=== PATIENT | male | born 1985 | race Caucasian/White ===

== ENCOUNTER 2017-01-19 10:09 | Inpatient (IN) | payer SELFPAY ==
[~2017-01-19] VITALS: Ht 180.3 cm; Wt 83.9 kg
[2017-01-19] MEDS ORDERED: SODIUM CHLORIDE 0.9% 1,000 ML IV ONE ×3 (14:00→15:45)
[2017-01-19] MEDS ORDERED: ONDANSETRON HCL 4MG/2ML VIAL IV ONE (14:00)
[2017-01-19] MEDS ORDERED: KETOROLAC 30MG/ML VIAL IV ONE (14:15)
[2017-01-19 15:23] LABS: HEMATOCRIT. 38.9 % (42.0-52.0); MEAN CORPUSCULAR HEMOGLOBIN 25.8 pg (28.0-32.0); MEAN CORPUSCULAR VOLUME 77.3 fL (80.0-94.0); MEAN PLATELET VOLUME 7.7 fl (7.4-10.4); PLATELET 358 x1000/uL (130-400); RED BLOOD CELL COUNT 5.04 mill/uL (4.7-6.1); RED CELL DISTRIBUTION WIDTH 13.5 % (11.6-14.6)
[2017-01-19 15:24] LABS: INR 1.1; PROTHROMBIN TIME 11.7 sec (9.4-11.6)
[2017-01-19 15:27] LABS: CARBON DIOXIDE 28 mEq/L (21-32); CHLORIDE 101 mEq/L (98-107)
[2017-01-19] MEDS ORDERED: MORPHINE SULFATE 2 MG/ML CPJ (NOT FOR IM USE) IV ONE (15:30)
[2017-01-19] MEDS ORDERED: PIPERACILLIN/TAZ 2.25G PREMIX 50 ML IV ONE (15:45)
[2017-01-19 16:16] LABS: PLATELET ESTIMATE NORMAL
[2017-01-19 16:34] LABS: CLARITY URINE CLEAR (CLEAR); COLOR URINE DARK YELLOW (YELLOW); GLUCOSE URINE NEGATIVE (NEGATIVE); KETONES URINE 1+ (NEGATIVE); LEUKOCYTE ESTERASE URINE TRACE (NEGATIVE); NITRITE URINE NEGATIVE (NEGATIVE); OCCULT BLOOD URINE NEGATIVE (NEGATIVE); PH URINE >=9.0 (4.5-8.0); PROTEIN URINE 2+ (NEGATIVE); SPECIFIC GRAVITY URINE 1.032 (1.005-1.030)
[2017-01-19] MEDS ORDERED: ONDANSETRON HCL 4MG/2ML VIAL IV PRN ×2 (17:00→18:15)
[2017-01-19] MEDS ORDERED: ACETAMINOPHEN 650MG SUPP PR PRN (17:00)
[2017-01-19] MEDS ORDERED: MORPHINE SULFATE 2 MG/ML CPJ (NOT FOR IM USE) IV PRN (17:00)
[2017-01-19] MEDS ORDERED: PROPOFOL 200MG/20ML VIAL IV ONE (17:03)
[2017-01-19] MEDS ORDERED: DEXAMETHASONE 4MG/ML 1ML VIAL ONE (17:03)
[2017-01-19] MEDS ORDERED: ROCURONIUM BROMIDE 10MG/ML VIAL 5ML IV ONE (17:03)
[2017-01-19] MEDS ORDERED: LABETALOL HCL 5MG/ML VIAL 20ML IV ONE (17:03)
[2017-01-19] MEDS ORDERED: BUPIVACAINE HCL 0.5% (5MG/ML) 50ML ONE (17:06)
[2017-01-19] MEDS ORDERED: HYDROMORPHONE HCL/PF 2MG/ML (OR) ONE (17:23)
[2017-01-19] MEDS ORDERED: PIPERACILLIN/TAZOBACTAM 3.375GM/50ML PREMIX IV SCH (18:00)
[2017-01-19] MEDS ORDERED: MEPERIDINE HCL/PF 25MG/ML CPJ IV PRN (18:15)
[2017-01-19] MEDS ORDERED: LABETALOL HCL 20MG/4ML CARPUJECT IV PRN (18:15)
[2017-01-19] MEDS: HYDROMORPHONE HCL/PF 2MG/ML CPJ IV PRN ×2 (18:21→18:24)
[2017-01-19 19:58] VITALS: BP 108/50
[2017-01-19 20:00] VITALS: BP 119/56
[2017-01-19] MEDS ORDERED: DEXT 5%/0.45% NACL KCL 20MEQ/L 1,000 ML IV SCH (20:00)
[2017-01-19] MEDS: FAMOTIDINE 20MG/2ML VIAL IV SCH (22:25)
[2017-01-19] MEDS: PIPERACILLIN/TAZ 3.375G PREMIX 50 ML IV SCH (22:52)
[2017-01-20 00:45] VITALS: BP 113/72
[2017-01-20 06:00] VITALS: BP 113/69
[2017-01-20] MEDS: MORPHINE SULFATE 4 MG/ML CPJ (NOT FOR IM USE) IV PRN ×5 (06:32→21:36)
[2017-01-20 08:00] VITALS: BP 117/66
[2017-01-20] MEDS: PIPERACILLIN/TAZ 3.375G PREMIX 50 ML IV SCH ×3 (09:18→21:27)
[2017-01-20] MEDS: FAMOTIDINE 20MG/2ML VIAL IV SCH ×2 (09:18→21:27)
[2017-01-20 12:00] VITALS: BP 113/53
[2017-01-20 16:00] VITALS: BP 112/57
[2017-01-20] MEDS ORDERED: ACETAMINOPHEN 325MG TABLET PO PRN (18:45)
[2017-01-20] MEDS: DEXT 5%/0.45% NACL KCL 20MEQ/L 1,000 ML IV SCH (19:05)
[2017-01-20 20:00] VITALS: BP 107/61
[2017-01-21 00:03] VITALS: BP 109/57
[2017-01-21] MEDS: DEXT 5%/0.45% NACL KCL 20MEQ/L 1,000 ML IV SCH ×3 (04:34→23:42)
[2017-01-21] MEDS: PIPERACILLIN/TAZ 3.375G PREMIX 50 ML IV SCH ×4 (04:34→23:42)
[2017-01-21] MEDS: MORPHINE SULFATE 4 MG/ML CPJ (NOT FOR IM USE) IV PRN ×4 (04:40→20:40)
[2017-01-21 08:00] VITALS: BP 113/67
[2017-01-21] MEDS: FAMOTIDINE 20MG/2ML VIAL IV SCH ×2 (08:30→20:39)
[2017-01-21 11:59] LABS: BASOPHILS % 0.2 % (0.0-2.0); EOSINOPHILS % 0.5 % (0.0-5.0); HEMATOCRIT. 33.4 % (42.0-52.0); LYMPHOCYTES % 15.1 % (20.0-50.0); MEAN CORPUSCULAR HEMOGLOBIN 25.8 pg (28.0-32.0); MEAN CORPUSCULAR VOLUME 78.2 fL (80.0-94.0); MEAN PLATELET VOLUME 7.9 fl (7.4-10.4); MONOCYTES % 6.7 % (2.0-8.0); NEUTROPHILS % 77.5 % (40.0-76.0); PLATELET 360 x1000/uL (130-400); RED BLOOD CELL COUNT 4.28 mill/uL (4.7-6.1)
[2017-01-21 12:00] VITALS: BP 99/55
[2017-01-21 12:12] LABS: CARBON DIOXIDE 29 mEq/L (21-32); CHLORIDE 105 mEq/L (98-107)
[2017-01-21 16:00] VITALS: BP 111/68
[2017-01-21 20:00] VITALS: BP 116/67
[2017-01-22] VITALS: BP 112/55
[2017-01-22] MEDS: MORPHINE SULFATE 4 MG/ML CPJ (NOT FOR IM USE) IV PRN ×4 (02:10→15:32)
[2017-01-22 04:00] VITALS: BP 115/55
[2017-01-22] MEDS: PIPERACILLIN/TAZ 3.375G PREMIX 50 ML IV SCH ×4 (05:26→23:14)
[2017-01-22 08:00] VITALS: BP 111/69
[2017-01-22] MEDS: FAMOTIDINE 20MG/2ML VIAL IV SCH ×2 (08:24→23:14)
[2017-01-22] MEDS: DEXT 5%/0.45% NACL KCL 20MEQ/L 1,000 ML IV SCH ×2 (09:42→23:15)
[2017-01-22 12:00] VITALS: BP 122/72
[2017-01-22 16:00] VITALS: BP 111/74
[2017-01-22 20:00] VITALS: BP 120/75
[2017-01-23] VITALS: BP 110/59
[2017-01-23 04:00] VITALS: BP 116/68
[2017-01-23] MEDS: PIPERACILLIN/TAZ 3.375G PREMIX 50 ML IV SCH ×3 (05:39→16:15)
[2017-01-23] MEDS: MORPHINE SULFATE 4 MG/ML CPJ (NOT FOR IM USE) IV PRN (06:20)
[2017-01-23 08:00] VITALS: BP 117/74
[2017-01-23] MEDS: DEXT 5%/0.45% NACL KCL 20MEQ/L 1,000 ML IV SCH ×2 (09:51→16:15)
[2017-01-23] MEDS: FAMOTIDINE 20MG/2ML VIAL IV SCH (10:35)
[2017-01-23 12:00] VITALS: BP 116/70
[2017-01-23 15:41] VITALS: BP 116/74
[2017-01-23 17:17] VITALS: BP 116/74
== END 2017-01-23 19:35 | disposition home or self-care (01) | DRG 223 ==
LOC: ER 12:32 → EDBEDREQ 15:41 → EDBEDREQSVC 15:41 → EDBEDREQTM 15:41 → 8WST 17:49 → ENRESERV 18:03 → 8WST 18:21
PROVIDERS: ADMIT Surgery; ATTEND Surgery
PROC: 0DU907Z Supplement Duodenum with Autologous Tissue Substitute, Open Approach (ICD-10-PCS; principal; 2017-01-19 16:30)
DX: K26.5 Chronic or unspecified duodenal ulcer with perforation (principal); E87.2 Acidosis; R18.8 Other ascites; K21.9 Gastro-esophageal reflux disease without esophagitis; N20.0 Calculus of kidney
CPT/HCPCS: 36415; 74176; 80048; 80053; 81001; 82941; 83036; 83605; 83690; 85025; 85610; 85651; 86850; 86900; 87040; 87070; 87075; 87086; 87205; 96361; 96374; 96375; 99291; J1100; J1170; J1885; J2175; J2270; J2405; J2543; J2704; J3490; J7030; J7050